=== PATIENT | female | born 1980 | race Caucasian/White ===

== ENCOUNTER → 2017-06-19 | Outpatient (CLI) | payer BC | LOC: FIMAGING 10:56 | PROVIDERS: ATTEND Obstetrics & Gynecology | DX: O09.522 Supervision of elderly multigravida, second trimester (principal); O99.212 Obesity complicating pregnancy, second trimester; Z68.41 Body mass index [BMI] 40.0-44.9, adult; Z3A.13 13 weeks gestation of pregnancy ==